=== PATIENT | male | born 1980 | race Caucasian/White ===

== ENCOUNTER 2023-02-13 09:22 | Day surgery (SDC) | payer BC ==
[2023-02-13 10:02] LABS: Absolute Lymphocytes (CBC) 1.5 K/uL (0.7-4.9); Lymphocytes % 32.6 % (15.3-44.8); MCV 97.1 fL (80-100); MPV 6.9 fL (7.6-11.3); Platelets 307 thou/uL (152-406); RBC Red Blood Cell Count 4.22 M/uL (4.33-5.43)
[2023-02-13] MEDS ORDERED: Ringers Lactate 1,000 ML IV ONE (10:12)
[2023-02-13] MEDS ORDERED: CEFAZOLIN SODIUM 2 GM/VIAL ONE (10:12)
[2023-02-13 10:18] LABS: Potassium 4.1 mEq/L (3.5-5.1)
[2023-02-13] MEDS ORDERED: BUPIVACAINE 0.25% PF 30 ML VIAL ONE (10:30)
[2023-02-13] MEDS ORDERED: FENTANYL CITR 100 MCG/2 ML ONE (11:27)
[2023-02-13] MEDS ORDERED: dexAMETHasone 10 MG/ML VIAL ONE (11:27)
[2023-02-13] MEDS ORDERED: propofoL 200 MG/20 ML VIAL IV ONE (11:27)
[2023-02-13] MEDS ORDERED: LIDOCAINE 2% MPF 5 ML VIAL ONE (11:27)
[2023-02-13] MEDS ORDERED: ONDANSETRON 4 MG/2 ML VIAL ONE (11:27)
[2023-02-13] MEDS ORDERED: KETOROLAC 30 MG/ML INJ ONE (11:27)
[2023-02-13] MEDS ORDERED: MIDAZOLAM HCL 2 MG/2 ML INJ ONE (11:27)
[2023-02-13] MEDS ORDERED: KETAMINE HCL IN 0.9 % NACL 50 MG/5 ML SYRINGE IV ONE (12:26)
[2023-02-13] MEDS ORDERED: GLYCOPYRROLATE 0.2 MG/ML SYR ONE (13:02)
[2023-02-13] MEDS ORDERED: ROCURONIUM 50 MG/5 ML VIAL IV ONE (13:19)
--- NOTE | 2023-02-13 13:35 | P.OP ---
Preoperative diagnosis: RIGHT Inguinal Hernia Postoperative diagnosis: RIGHT Inguinal Hernia Primary procedure: Open RIGHT inguinal hernia repair with mesh Anesthesia: GETA + Local Estimated blood loss: <5cc Specimen: Cord Lipoma, Hernia Contents Findings: Ext oblique thin, frail Complications: None Implants: Bard Perfix Plug and Patch Transferred to: Recovery Room () Condition: Good
[2023-02-13] MEDS: MORPHINE 4 MG/ML SYR ONE ×2 (14:04→14:11)
[2023-02-13] MEDS ORDERED: HYDROMORPHONE HCL 1 MG/ML INJ ONE (14:33)
[2023-02-13 15:02] VITALS: BP 124/98; TEMP 97; O2SAT 94
[2023-02-13] MEDS ORDERED: HYDROCODONE/APAP 10/325 TAB ONE (15:43)
--- NOTE | 2023-02-13 17:00 | OP ---
Date of Procedure: 02/13/2023 Surgeon: Sanju Orellana MD, Preoperative Diagnosis: Right inguinal hernia. Postoperative Diagnosis: Right inguinal hernia. Procedure Performed: Open right inguinal hernia repair with mesh. Anesthesia: General endotracheal plus local with 0.25% Marcaine. Estimated Blood Loss: Less than 5 cc. Specimen: Cord lipoma and hernia contents. Findings: 1.Thin external oblique aponeurosis, which is quite thin, frail. 2.Varicocele, hydrocele noted. Complications: None. Implants: Bard PerFix hernia plug and patch repair system. Disposition: The patient transferred to recovery room in good condition. Procedure In Detail: After informed consent was obtained, the patient was brought to the operating r oom, prepped and draped in the usual sterile fashion. After adequate anesthesia achieved, I made an inguinal incision down through subcutaneous tissues after appropriately anesthetizing the skin. I di ssected down through Camper's fat and Meka's fascia to expose the external oblique aponeurosis, whi ch was found to be quite thin and friable. The spermatic cord and structures were seen quite easily underneath the structure. As it looked significantly thin, I then made an incision overlying this us ing a 15 blade down through the tissues and ultimately opened in its entirety using Metzenbaum scisso rs, protecting the ilioinguinal iliohypogastric nerves throughout. At this point, after being opened in its entirety, I encircled the spermatic cord and structures with a [place] drain and ultimately b ilene dissecting the spermatic cord and structures away from a cord lipoma, which was then ligated and sent off for pathologic examination. I then continued the dissection down to find an indirect ingui nal hernia on the medial aspect, which had adipose tissue entrapped incarcerated within. This was di ssected free from the spermatic cord and structures in its entirety completely and a 2-0 Vicryl sutur e was used to ligate the structure, and electrocautery used to dissect it free and it was sent off fo r pathologic examination. I then replaced the preperitoneal fat in the normal anatomic position, pal pated the area, and found a good landing zone for a medium Bard PerFix plug. I then deployed the plu g into the preperitoneal space at this point and opened it in its entirety. I then secured it circum ferentially using 3 interrupted 2-0 PDS sutures with good approximation of the tissues. At this poin t, the spermatic cord and structures were irrigated copiously and dried out. At this point, I excise d a hernia patch appropriately, secured it to the pubic tubercle on the medial aspect, and then on th e medial and lateral shelving edges of the internal oblique aponeurosis and undersurface of the ingui nal ligament using interrupted 2-0 PDS sutures ultimately reconstructing the deep inguinal ring with the same set 2-0 PDS suture. At this point, the testicle was returned to the normal anatomic positio n without tension and the area was copiously irrigated once again. The thin, friable external obliqu e aponeurosis was closed using a running 3-0 Vicryl suture with good approximation of tissue. The ar ea was once again irrigated copiously and suctioned out until dry. The deep dermal plane was closed using the same set 3-0 Vicryl suture in an interrupted fashion, and the skin was closed with a 4-0 Mo nocryl in a running fashion. Dermabond was placed over top. The patient tolerated the procedure wel l without evidence of complication and transferred to PACU in good condition. All counts were correc t at the end of the case. PHILIPPE/RIKI Voice ID: [id number] Report ID: [id number]
== END 2023-02-13 16:36 | disposition home or self-care (01) ==
LOC: OR 09:22
PROVIDERS: ATTEND Surgery
PROC: 0YU50JZ Supplement Right Inguinal Region with Synthetic Substitute, Open Approach (ICD-10-PCS; principal; 2023-02-13 11:45)
DX: K40.90 Unilateral inguinal hernia, without obstruction or gangrene, not specified as recurrent (principal); R10.31 Right lower quadrant pain
CPT/HCPCS: 93005; 85025; 80048; 36415; 88302; 49505; J2704; J2001; J2250; J3010; J1100; J1170; J2405; J7120